=== PATIENT | male | born 1960 | race Caucasian/White ===

== ENCOUNTER 2025-02-26 03:52 | Emergency (ER) | payer OTHER ==
[~2025-02-26] VITALS: Ht 188 cm; Wt 137.0 kg
[2025-02-26 04:10] VITALS: TEMP 98.8
[2025-02-26 06:09] LABS: PLATELET COUNT (AUTO) 292 K/uL (150-450); RED BLOOD CELL COUNT(AUTO) 4.06 MIL/uL (4.50-5.90); RED CELL DISTRIBUTION WIDTH 13.7 % (11.5-14.5); WHITE BLOOD COUNT (AUTO) 12.0 K/uL (4.5-11.0)
[2025-02-26 06:24] LABS: CALCIUM, TOTAL 9.7 mg/dL (8.8-10.5); CREATININE 1.09 mg/dL (0.60-1.30); GLOMERULAR FILTR. RATE CALC > 60 mL/min (>60); GLUCOSE,RANDOM 150 mg/dL (70-110); SODIUM SERUM 136 mmol/L (136-145); UREA NITROGEN, BLOOD 8 mg/dL (7-18)
[2025-02-26 06:31] LABS: TROPONIN I-HIGH SENSITIVITY 9 ng/L (<76)
[2025-02-26 07:15] VITALS: BP 137/72; PULSE 98; RESP 20; O2SAT 97
== END 2025-02-26 08:14 | disposition home or self-care (01) ==
LOC: EMS 03:54
DX: R53.1 Weakness (principal); I48.91 Unspecified atrial fibrillation; I10 Essential (primary) hypertension; Z98.890 Other specified postprocedural states; Z88.0 Allergy status to penicillin; Z88.5 Allergy status to narcotic agent
CPT/HCPCS: 71045; 80048; 84484; 85025; 93005; 99285; 36415-L1; 36415-TC